=== PATIENT | male | born 1950 | race Caucasian/White ===

== ENCOUNTER 2017-03-03 07:40 | Observation (INO) | payer BC, OTHER ==
[~2017-03-03] VITALS: Ht 177.8 cm; Wt 85.5 kg
[2017-03-03] MEDS: RAMELTEON 8 MG TAB (ROZEREM) PO SCH (00:23)
[2017-03-03] MEDS ORDERED: TRAV04OPD (07:51)
[2017-03-03] MEDS ORDERED: METO1TAB33 PO (07:51)
[2017-03-03] MEDS ORDERED: LOSA100T36 PO (07:51)
[2017-03-03] MEDS ORDERED: ROSU40TA PO (07:51)
--- NOTE | 2017-03-03 08:34 | REP ---
CT of the brain without IV contrast: There are no comparisons. There is no hemorrhage. There is no edema, mass effect or midline shift. The cortical stripe is unremarkable. The ventricles are normal size and midline. The visualized paranasal sinuses and mastoid air cells are unremarkable. Impression: There is no hemorrhage, acute infarct or mass. Negative emergency CT of the brain. Signed by Thomas Mcintosh MD 03/03/2017 08:26 A
--- NOTE | 2017-03-03 09:06 | REP ---
SINGLE VIEW CHEST: Single PA view of the chest is performed. There is convexity along the right heart border in the infrahilar region. This may represent a prominent fat pad or scar but I would recommend a CT of the chest with IV contrast to rule out underlying mass or consolidation. Otherwise, the lungs are clear without infiltrate. The heart appears mildly enlarged. There is mild calcification of the thoracic aorta. There are degenerative changes of the spine. IMPRESSION: Convexity along the right heart border in the right infrahilar region. Recommend CT of the chest with IV contrast to further evaluate. Signed by Thomas Staples MD 03/03/2017 05:37 P
[2017-03-03 09:18] LABS: BASO % 0.4 % (0.0-1.0); EOS % 0.5 % (0.0-3.0); LARGE UNSTAINED CELL # 0.1 K/mm3 (0.0-0.4); LARGE UNSTAINED CELL % 2.2 % (0.0-4.0); LYMPH # 1.2 K/mm3 (1.5-4.5); LYMPH % 20.1 % (24.0-44.0); MEAN CORPUSCULAR HEMOGLOBIN 33.8 pg (27.0-33.0); MEAN CORPUSCULAR HGB CONC 35.6 g/dl (32.0-36.5); MONO # 0.4 K/mm3 (0.0-0.8); MONO % 6.1 % (0.0-5.0); NEUTROPHILS # 4.2 K/mm3 (1.8-7.7); NEUTROPHILS % 70.7 % (36.0-66.0); PLATELET COUNT, AUTOMATED 150 k/mm3 (150-450); RED CELL DISTRIBUTION WIDTH 12.6 % (11.5-14.5); WHITE BLOOD COUNT 5.9 K/mm3 (4.0-10.0)
[2017-03-03 09:24] LABS: ANION GAP 4 MEQ/L (8-16); BLOOD UREA NITROGEN 14 MG/DL (7-18); CALCIUM LEVEL 9.2 MG/DL (8.8-10.2); CARBON DIOXIDE LEVEL 28 MEQ/L (21-32); CHLORIDE LEVEL 106 MEQ/L (98-107); CREATININE FOR GFR 0.79 MG/DL (0.70-1.30); GLOMERULAR FILTRATION RATE > 60.0 (>49); GLUCOSE, FASTING 108 MG/DL (80-110); SODIUM LEVEL 138 MEQ/L (136-145)
[2017-03-03 09:48] LABS: INR 0.96
[2017-03-03] MEDS ORDERED: ACETAMINOPHEN TAB 650MG DOSE (2X325MG) PO PRN (13:30)
[2017-03-03] MEDS ORDERED: BISACODYL 5 MG TAB PO PRN (13:30)
[2017-03-03] MEDS ORDERED: ONDANSETRON 4MG/2ML VIAL (J2405) IV PRN (13:30)
[2017-03-03] MEDS ORDERED: PERCOCET 5MG/325MG TAB PO ONE ×2 (13:45→14:45)
--- NOTE | 2017-03-03 14:27 | HPEPDOC ---
[facility] Medical History & Physical Date of Admission Mar 03, 2017 History and Physical ATTENDING: PCP: Dr Neftali Pham CC: Leg tingling HPI: 66yoM with a past medical history significant for HTN, HLD who reports difficulty forming words, difficulty getting words out, difficulty with concentration and writing, and RLE tingling and pain. He does note lower Rt back pain as well. States symptoms come and go for past 2 days. He has reported that he has noticed some difficulty with speech over the past 1 year but states concentration and ability to get words out is worse in past 2 days. He states he has noticed Rt LBP and Rt leg pain and tingling over the past 2 days. Denies weakness UE/LE. Denies DONOHUE, vision changes, dizziness, dysphagia. Denies any fevers, chills, weakness, fatigue, CP, SOB, cough, palpitations, abdominal pain, N/V/D or changes in bowel or bladder habits. Upon presentation to the hospital the patient was found to have aphasia and back pain, thus the hospitalist team was consulted. PMHx: HTN HLD GERD h/o LBP Psoriasis Glaucoma PSHX: CTR Left. Colonoscopy. 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 ETOH: denies Illicit Drugs: Denies Recent travel: denies Advanced directives: none FAMHX: Mother: "old age" Father: heart disease Siblings: 1 brotehr Alive, unknown Children: none ROS: As noted in HPI, otherwise 11pt ROS of systems reviewed and unremarkable. PE: GEN: 66yoM, appears stated age. Well-nourished, well developed. No acute distress. Alert and oriented x 3. Slow to answer questions at times, but answering appropriately and proving history. HEENT: Normocephalic, atraumatic. Pupils are equal, round, and reactive to light. Extraocular movements are intact. No nystagmus appreciated. Sclera are nonicteric. Conjunctiva without injection. Nose midline. Nasal turbinates without bogginess. EACs both patent BL. TMs both visualized and benitez with good cone of light, no bulging or erythema. No facial asymmetry. Moist mucous membranes. Dentition fair. Pharynx pink and moist, no cobblestoning. Neck supple , trachea midline. No lymphadenopathy or thyromegaly appreciated. CHEST: Regular rate and rhythm, +S1, +S2 LUNGS: Clear to auscultation bilaterally. No wheezes, rales, or rhonchi. Breathing appears symmetric and easy. Patient is speaking in full sentences. No accessory muscle use. ABD: Round, soft, non-tender, non-distended. +Bowel sounds throughout. No rebound or guarding. No costovertebral angle tenderness. EXT: Pulses 2+ bilaterally dorsalis pedis and radial. No lower extremity edema appreciated. SKIN: [place], dry, warm. Capillary refill <2sec. No rashes. NEURO: Alert and oriented x 3. No focal deficits appreciated. DTRs intact. Mild TTP in th Rt lower Lumbar spine area. EKG: SR [address] head. There is no hemorrhage, acute infarct or mass. Negative emergency CT of the brain. CXR Convexity along the right heart border in the right infrahilar region. Recommend CT of the chest with IV contrast to further evaluate. A&P: 66yoM with a past medical history significant for HTN, HLD who reports difficulty forming words, difficulty getting words out, difficulty with concentration and writing, and RLE tingling and pain. He does note lower Rt back pain as well. States symptoms come and go for past 2 days. 1. The patient will be admitted to PCU for at least [address] Campa's service. Pt is discussed with Dr Giles. 2. Expressive aphasia. MRI Brain pending. PCU/TM. TTE pending. Carotid U/S pending. Pt on ASA 81 mg daily. PT/OT/ST pending. UA/UC pending. TSH pending. Neuro checks. Neuro consulted to further evaluate. Dr Pineda aware and will see the Pt. 3. LBP. MRI LS Spine pending. Pain Control. PT/OT. 4. HTN. Cont outpt regimen with hold parameters. Serial CIP/Trop. 5. HLD. Cont statin. 6. Glaucoma. Cont outpt regimen. 7. Abn CXR. CT with contrast recommended. Will need further evaluation and f/u. MED REC IS PENDING AT THIS TIME. DVT prophylaxis. SQ heparin. The patient is a Full Code Vital Signs Vital Signs Date Time Temp Pulse Resp B/P (MAP) Pulse Ox O2 Delivery O2 Flow Rate FiO2 03/03/17 08:52 03/03/17 07:47 97.9 68 18 97 Room Air Laboratory Data Labs 24H Laboratory Tests 2 03/03/17 08:45: Bedside Glucose (Misc Panel) 112 03/03/17 08:48: White Blood Count 5.9, Red Blood Count 4.41, Hemoglobin 14.9, Hematocrit 41.9L, Mean Corpuscular Volume 95.0, Mean Corpuscular Hemoglobin 33.8H, Mean Corpuscular Hemoglobin Concent 35.6, Red Cell Distribution Width 12.6, Platelet Count 150, Neutrophils (%) (Auto) 70.7H, Lymphocytes (%) (Auto) 20.1L, Monocytes (%) (Auto) 6.1H, Eosinophils (%) (Auto) 0.5, Basophils (%) (Auto) 0.4 , Neutrophils # (Auto) 4.2, Lymphocytes # (Auto) 1.2L, Monocytes # (Auto) 0.4, Eosinophils # (Auto) 0.0, Basophils # (Auto) 0.0, Large Unclassified Cells % 2.2 , Large Unclassified Cells # 0.1, Prothrombin Time 12.9, Prothromb Time International Ratio 0.96, Activated Partial Thromboplast Time 24.9L, Anion Gap 4L, Glomerular Filtration Rate > 60.0, Blood Urea Nitrogen 14, Creatinine 0.79, Sodium Level 138, Potassium Level 4.0, Chloride Level 106, Carbon Dioxide Level 28, Calcium Level 9.2, Total Creatine Kinase 35L, Creatine Kinase MB 1.0, Creatine Kinase MB Relative Index 2.85, Troponin I < 0.02 CBC/BMP Laboratory Tests 03/03/17 08:48 Red Blood Count 4.41, Mean Corpuscular Volume 95.0, Mean Corpuscular Hemoglobin 33.8 H, Mean Corpuscular Hemoglobin Concent 35.6, Red Cell Distribution Width 12.6, Neutrophils (%) (Auto) 70.7 H, Lymphocytes (%) (Auto) 20.1 L, Monocytes (% ) (Auto) 6.1 H, Eosinophils (%) (Auto) 0.5, Basophils (%) (Auto) 0.4, Neutrophils # (Auto) 4.2, Lymphocytes # (Auto) 1.2 L, Monocytes # (Auto) 0.4, Eosinophils # (Auto) 0.0, Basophils # (Auto) 0.0, Calcium Level 9.2, Total Creatine Kinase 35 L Home Medications Scheduled Aspirin (Aspirin 81) 81 Mg Tab, 81 MG PO DAILY Losartan Potassium (Losartan Potassium) 100 Mg Tab, 100 MG PO DAILY Metoprolol Succinate (Metoprolol Succinate ER) 100 Mg Tab, 100 MG PO DAILY Rosuvastatin Calcium (Rosuvastatin Calcium) 40 Mg Tab, 40 MG PO DAILY Travoprost (Travatan Z) 50 Drop/2.5 Ml Soln, 1 DROP OU QHS Allergies Coded Allergies: No Known Allergies (Unverified , 03/03/17) Attending Note Attending Note I have independently interviewed and examined this patient at the bedside. He states that he has had a few months history of expressive aphasia where he knew what to say, but had to concentrate and take a few seconds before the right words came out, worsened in the past two days when he was at a closing where they had a discussion, and it took him a few seconds to respond again. 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 He otherwise denied any lower extremity weakness or foot drop. Velia Ferrell Mar 03, 2017 14:27 DAMON GILES MD Mar 04, 2017 12:11
[2017-03-03] MEDS ORDERED: ASPI1TAB PO (14:36)
[2017-03-03] MEDS ORDERED: TRAV04OPD OU (14:36)
[2017-03-03] MEDS ORDERED: PERCOCET 5MG/325MG TAB PO PRN (14:45)
[2017-03-03] MEDS ORDERED: MORPHINE 2 MG/ML 1ML SYRINGE IV PRN (14:45)
[2017-03-03] MEDS ORDERED: MORPHINE 2 MG/ML 1ML SYRINGE IV ONE (14:45)
[2017-03-03 16:00] VITALS: BP 140/101
[2017-03-03] MEDS ORDERED: SLF 3 ML SYR IV PRN (16:15)
[2017-03-03] MEDS: ASPIRIN 81 MG ENTERIC TAB PO SCH (16:22)
[2017-03-03] MEDS: ROSUVASTATIN 10 MG TAB (CRESTOR) PO SCH (16:22)
[2017-03-03] MEDS: METOPROLOL SUCC (TopROL XL) 100MG *XL* TAB PO SCH (16:22)
[2017-03-03] MEDS: LOSARTAN 50 MG TAB PO SCH (16:23)
[2017-03-03 17:09] VITALS: BP 132/84
[2017-03-03] MEDS: PERCOCET 5MG/325MG TAB PO PRN ×3 (17:25→22:40)
--- NOTE | 2017-03-03 20:05 | REP ---
HISTORY: Aphagia. COMPARISON: None. Multiple sonographic images of the carotid arteries show echogenic material along the carotid arterial malin particularly in the proximal internal carotid arteries bilaterally, the carotid bulb and distal common carotid artery. The echogenic material seen casting an acoustic shadow consistent with both soft and calcified plaque formation. Right Left CCA systolic 92.5 cm/s 89.9 cm/s CCA diastolic 20.7 cm/s 17.2 cm/s ICA systolic 115.7 cm/s 95.1 cm/s ICA diastolic 23.1 cm/s 13.5 cm/s ICA/CCA ratio 1.25 1.06 Analysis of the spectral waveforms shows mild to moderate bilateral internal carotid arterial spectral broadening. Antegrade flow is seen in both vertebral arteries. IMPRESSION: According to the NASCET consensus criteria, there is less than 50% stenosis of the internal carotid arteries bilaterally. Signed by Danis Rojas DO 03/07/2017 10:30 A
--- NOTE | 2017-03-03 20:40 | REPUSA ---
MRI of the brain. Clinical history: leg weakness, aphasia. Technique: Multiecho multiplanar MRI images of the brain were obtained without administration of cont rast. Diffusion weighted images with ADC mapping was also obtained. Findings: The ventricles and sulci are symmetric bilaterally. The brain parenchyma demonstrates scattered areas of periventricular and subcortical white matter T2 hyperintensity. There is no midline shift, mass e ffect, or extra-axial fluid collection. The midline intracranial structures do not demonstrate any gr oss abnormalities. The cervical cranial junction is intact. The orbits are unremarkable. The visualiz ed paranasal sinuses and mastoid air cells are clear. The osseous structures and superficial soft tis sues are unremarkable. The vascular structures demonstrate appropriate flow voids. Impression: No evidence of acute hemorrhage or infarct. Scattered T2 signal changes in the periventri cular and subcortical white matter likely represents chronic small vessel ischemic disease in a patie nt of this age. Follow-up is suggested as clinically indicated.
--- NOTE | 2017-03-03 21:10 | REPUSA ---
MRI of the lumbar spine without contrast Clinical statement: right leg numbness. Technique: Multiecho multiplanar MRI images of the lumbar spine were obtained without administration of contrast. No comparison is available. Findings: The lumbar vertebral bodies are in satisfactory position and alignment. No fractures or dis locations are demonstrated. Normal heterogeneous bone marrow signal is noted. No osseous tumors are s een. The intervertebral disc heights are well maintained and demonstrate normal signal. The filum ter minale and conus medullaris appear unremarkable. The spinal cord demonstrates normal signal and conto ur. The surrounding soft tissues are within normal limits. At L3/L4 and L4/L5, there is minimal disc bulging noted. There is no evidence of central canal stenos is. The neural foramen are patent. At L4/L5, there is a right paracentral disc protrusion measuring 0.5 x 1.2 cm. There is also a disc e xtrusion extending at this site 1.1 cm inferiorly along the posterior border of the L5 vertebral body . The disc protrusion causes significant mass effect on the right anterior thecal sac. The disc extru ayesha comes in close proximity to the exiting right S1 nerve root at this level. Additionally, there i s moderate bilateral neural foraminal narrowing. Impression: 1. Moderate sized right paracentral disc protrusion at L4/L5, causing mass effect on the right anteri or thecal sac without evidence of central canal stenosis. A disc extrusion extending inferiorly is al so seen at the site. This disc extrusion comes in close proximity and likely in contact with the exit ing right S1 nerve root at this level. Additionally, there is moderate bilateral neural foraminal cat rowing noted. 2. Minimal disc bulging is also appreciated at L3/L4 and L4/L5, without evidence of central canal dori nosis or neural foraminal narrowing.
[2017-03-03 21:21] VITALS: BP 131/70
[2017-03-03] MEDS: LATANOPROST 0.005% OPHTH SOLN 2.5 ML OU SCH (22:08)
[2017-03-03] MEDS: SLF 3 ML SYR IV SCH (22:09)
[2017-03-03] MEDS: HEPARIN SOD (PORCINE) 5000 UNITS/ML VIAL SC SCH (22:09)
[2017-03-04 00:30] VITALS: BP 113/59
[2017-03-04 05:22] LABS: BASO % 0.4 % (0.0-1.0); LARGE UNSTAINED CELL # 0.1 K/mm3 (0.0-0.4); LARGE UNSTAINED CELL % 2.1 % (0.0-4.0); LYMPH # 1.8 K/mm3 (1.5-4.5); LYMPH % 34.1 % (24.0-44.0); MEAN CORPUSCULAR HEMOGLOBIN 34.4 pg (27.0-33.0); MEAN CORPUSCULAR HGB CONC 35.9 g/dl (32.0-36.5); MEAN CORPUSCULAR VOLUME 95.7 fl (80.0-96.0); MONO # 0.4 K/mm3 (0.0-0.8); MONO % 6.9 % (0.0-5.0); NEUTROPHILS % 55.4 % (36.0-66.0); PLATELET COUNT, AUTOMATED 150 k/mm3 (150-450); RED CELL DISTRIBUTION WIDTH 12.7 % (11.5-14.5); WHITE BLOOD COUNT 5.3 K/mm3 (4.0-10.0)
[2017-03-04] MEDS: HEPARIN SOD (PORCINE) 5000 UNITS/ML VIAL SC SCH ×3 (05:26→20:38)
[2017-03-04] MEDS: SLF 3 ML SYR IV SCH ×3 (05:26→20:38)
[2017-03-04 05:28] VITALS: BP 123/68
[2017-03-04 05:38] LABS: ANION GAP 6 MEQ/L (8-16); BLOOD UREA NITROGEN 16 MG/DL (7-18); CALCIUM LEVEL 8.7 MG/DL (8.8-10.2); CARBON DIOXIDE LEVEL 29 MEQ/L (21-32); CHLORIDE LEVEL 107 MEQ/L (98-107); CREATININE FOR GFR 0.91 MG/DL (0.70-1.30); GLOMERULAR FILTRATION RATE > 60.0 (>49); GLUCOSE, FASTING 99 MG/DL (80-110); POTASSIUM SERUM 4.2 MEQ/L (3.5-5.1); SODIUM LEVEL 142 MEQ/L (136-145)
[2017-03-04 08:25] VITALS: BP 118/63
[2017-03-04] MEDS ORDERED: ISOVUE-370 76% 100ML VIAL (Q9967) As Ordered ONE (08:42)
--- NOTE | 2017-03-04 09:15 | REP ---
CT CHEST WITH IV CONTRAST: HISTORY: Right infrahilar fullness on x-ray dated May 03, 2017. Chest CT recommended. No comparison chest CT study. CT CONTRAST DOSE: 75 mL of intravenous Isovue 370. CT FINDINGS: There is a granulomatous calcification in the right lower lobe adjacent to the posterolateral pleural. In addition, there is a tiny noncalcified nodular density in the anterior segment of the right upper lobe visible on image 49 of 115 in series 201 of today's study. This measures only 3 mm in greatest diameter. No other pulmonary nodule is seen. No pulmonary mass lesion or infiltrate is noted. No hilar or mediastinal mass or adenopathy is seen. There is fairly prominent left coronary artery vascular calcification and some right coronary vascular calcification is observed. No adrenal lesion is seen. Visualized upper abdominal structures are unremarkable. IMPRESSION: 3 mm incidental noncalcified pulmonary nodule in the right upper lobe. Granulomatous calcification in the right lower lobe. No other abnormal pulmonary parenchymal opacity. Follow-up CT study can be performed in 1 year to document stability in size. Signed by Jamil Mensah MD 03/04/2017 03:18 P
[2017-03-04] MEDS: ROSUVASTATIN 10 MG TAB (CRESTOR) PO SCH (09:20)
[2017-03-04] MEDS: METOPROLOL SUCC (TopROL XL) 100MG *XL* TAB PO SCH (09:21)
[2017-03-04] MEDS: PERCOCET 5MG/325MG TAB PO PRN (09:21)
[2017-03-04] MEDS: LOSARTAN 50 MG TAB PO SCH (09:21)
[2017-03-04] MEDS: ASPIRIN 81 MG ENTERIC TAB PO SCH (09:22)
[2017-03-04] MEDS ORDERED: NAPROXEN 250 MG TAB PO PRN (10:15)
[2017-03-04] MEDS: GABAPENTIN 100 MG CAP PO SCH ×2 (11:31→20:37)
--- NOTE | 2017-03-04 11:37 | ECGEPIP ---
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
[2017-03-04 12:00] VITALS: BP 116/56
--- NOTE | 2017-03-04 14:07 | IPNPDOC ---
Text Note Date of Service The patient was seen on 03/04/17. NOTE Subjective: Patient states he feels much better. His radiculopathy has much improved. No focal deficits. Had complained of issues with short-term memory for the past 1 year. No dysarthria/dysphagia/facial droop/ or focal weakness reported. Objective: Vitals: (see below) General: No acute distress, laying comfortably in bed. HEENT: Moist mucous membranes. Neck: No JVD or lymphadenopathy Cardiac: RRR, No murmurs Pulm: Clear to auscultation b/l. No wheezing, rhonchi Abd: NT/ND + BS Ext: No edema or cyanosis Neuro: Strength 5/5 BUE and BLE. CN 2-12 intact. F to N intact Negative Babinki. Sensation to fine touch and pinprick intact. NIH 0 Alert and oriented 3 DTR 2+ bilateral lower extremities Labs (see below) Images: MRI brain 03/03/17Impression: No evidence of acute hemorrhage or infarct. Scattered T2 signal changes in the periventricular and subcortical white matter likely represents chronic small vessel ischemic disease in a patient of this age. Follow-up is suggested as clinically indicated. Carotid ultrasound 03/03/17 IMPRESSION: According to the NASCET consensus criteria, there is less than 50% stenosis of the internal carotid arteries bilaterally. Head CT 03/03/17 Impression: There is no hemorrhage, acute infarct or mass. Negative emergency CT of the brain. Chest x-ray 03/03/17 IMPRESSION: Convexity along the right heart border in the right infrahilar region. Recommend CT of the chest with IV contrast to further evaluate. CT chest with contrast 03/03/17 IMPRESSION: 3 mm incidental noncalcified pulmonary nodule in the right upper lobe. Granulomatous calcification in the right lower lobe. No other abnormal pulmonary parenchymal opacity. Follow-up CT study can be performed in 1 year to document stability in size. MRI lumbar spine 03/03/17Impression: 1. Moderate sized right paracentral disc protrusion at L4/L5, causing mass effect on the right anterior thecal sac without evidence of central canal stenosis. A disc extrusion extending inferiorly is also seen at the site. This disc extrusion comes in close proximity and likely in contact with the exiting right S1 nerve root at this level. Additionally, there is moderate bilateral neural foraminal narrowing noted. 2. Minimal disc bulging is also appreciated at L3/L4 and L4/L5, without evidence of central canal stenosis or neural foraminal narrowing. Assessment/Plan 1. Radiculopathy secondary to disc herniation/protrusion. No central canal stenosis the patient's has full strength and sensation. Patient has had chronic lower back pain for years. Has no difficulty with ambulation at this time. His pain regimen is being optimized with the addition of naproxen as well as gabapentin. Physical therapy has been ordered. He is agreeable to surgical evaluation down the road if this pain worsens, and is not controlled despite medical management. 2. Memory loss- patient states this is been going on for the past year. Likely has memory loss from old age as well as possible early development of dementia. Neurology had been consulted. 3. Abnormal chest x-ray- CT chest was performed with a 3 mm incidental nodule as well as granulomatous calcification with recommendations for repeat in one year. We'll need to follow-up with primary care physician. 4. Hypertension controlled continue home meds 5. Hyperlipidemia continue statin 6. GERD continue home meds 7. History of psoriasis- outpatient follow-up 8. History of glaucoma- stable. Outpatient follow-up DVT prophy: Heparin subcutaneous Plan to discharge the next 24 hours if patient continues to improve. VS,Fishbone, I+O VS, Fishbone, I+O Laboratory Tests 03/04/17 05:08 Red Blood Count 4.28 L, Mean Corpuscular Volume 95.7, Mean Corpuscular Hemoglobin 34.4 H, Mean Corpuscular Hemoglobin Concent 35.9, Red Cell Distribution Width 12.7, Neutrophils (%) (Auto) 55.4, Lymphocytes (%) (Auto) 34.1, Monocytes (%) (Auto) 6.9 H, Eosinophils (%) (Auto) 1.0, Basophils (%) ( Auto) 0.4, Neutrophils # (Auto) 3.0, Lymphocytes # (Auto) 1.8, Monocytes # (Auto ) 0.4, Eosinophils # (Auto) 0.0, Basophils # (Auto) 0.0, Calcium Level 8.7 L, Total Creatine Kinase 25 L Vital Signs Date Time Temp Pulse Resp B/P (MAP) Pulse Ox O2 Delivery O2 Flow Rate FiO2 03/04/17 09:51 18 Room Air 03/04/17 09:21 69 118/63 03/04/17 08:25 98.2 95 I&O- Last 24 Hours up to 6 AM 03/05/17 05:59 Intake Total 360 ml Output Total 0 ml Balance 360 ml OLGA JESUS MD Mar 04, 2017 14:07
[2017-03-04 16:30] VITALS: BP 103/59
[2017-03-04] MEDS: RAMELTEON 8 MG TAB (ROZEREM) PO SCH (20:37)
[2017-03-04] MEDS: LATANOPROST 0.005% OPHTH SOLN 2.5 ML OU SCH (20:38)
[2017-03-04 22:00] VITALS: BP 102/60
[2017-03-05] MEDS: HEPARIN SOD (PORCINE) 5000 UNITS/ML VIAL SC SCH (05:09)
[2017-03-05] MEDS: SLF 3 ML SYR IV SCH (05:09)
[2017-03-05 05:50] LABS: BASO % 0.2 % (0.0-1.0); EOS % 0.8 % (0.0-3.0); LARGE UNSTAINED CELL # 0.2 K/mm3 (0.0-0.4); LARGE UNSTAINED CELL % 3.5 % (0.0-4.0); LYMPH # 1.8 K/mm3 (1.5-4.5); LYMPH % 34.8 % (24.0-44.0); MEAN CORPUSCULAR HEMOGLOBIN 33.4 pg (27.0-33.0); MEAN CORPUSCULAR VOLUME 95.6 fl (80.0-96.0); MONO # 0.3 K/mm3 (0.0-0.8); MONO % 6.1 % (0.0-5.0); NEUTROPHILS # 2.7 K/mm3 (1.8-7.7); NEUTROPHILS % 54.5 % (36.0-66.0); PLATELET COUNT, AUTOMATED 146 k/mm3 (150-450); RED CELL DISTRIBUTION WIDTH 12.7 % (11.5-14.5)
[2017-03-05 06:00] VITALS: BP 112/60
[2017-03-05 06:01] LABS: ANION GAP 4 MEQ/L (8-16); BLOOD UREA NITROGEN 17 MG/DL (7-18); CALCIUM LEVEL 8.5 MG/DL (8.8-10.2); CARBON DIOXIDE LEVEL 30 MEQ/L (21-32); CHLORIDE LEVEL 110 MEQ/L (98-107); CREATININE FOR GFR 0.85 MG/DL (0.70-1.30); GLOMERULAR FILTRATION RATE > 60.0 (>49); GLUCOSE, FASTING 101 MG/DL (80-110); POTASSIUM SERUM 4.2 MEQ/L (3.5-5.1); SODIUM LEVEL 144 MEQ/L (136-145)
--- NOTE | 2017-03-05 09:01 | CR ---
DATE OF CONSULTATION: 03/04/2017 REFERRING PHYSICIAN: Dr. Silvia Rizo REASON FOR CONSULTATION: Difficulty with speech and right leg numbness. HISTORY OF PRESENT ILLNESS. Doris Golden is a 66-year-old man with a history of hypertension, dyslipidemia who was admitted at [facility] due to difficulty finding words. He had difficulty writing and getting words out for last 1 year. He denies any worsening of his symptoms over the last few weeks. He developed right leg pain and numbness, which is 5/10 in intensity, a week ago. He has history of back pain for 20 years. Back pain is 8/10 in intensity and radiates down his right leg. In the past, he was told that he may have sciatica. He denies any neck pain, headaches, seizures, dysphagia, dysarthria, diplopia or urinary incontinence. He denies any weakness of his right leg. He denies any problems of his right arm or left side of body. He denies any problems of his face. DIAGNOSTIC STUDIES: His CT scan of head was unremarkable. MRI scan of brain showed mild small vessel ischemic disease of brain. MRI lumbosacral spine showed disc disease at L3-L4, L4-L5 with compression of right L5-S1 nerves. PAST MEDICAL HISTORY: Hypertension. Dyslipidemia. Acid reflux. History of chronic low back pain. Psoriasis. Glaucoma. Left carpal tunnel surgery. Colonoscopy. SOCIAL HISTORY: He is . 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 He denies alcohol or illicit drugs. He denies smoking. He used to smoke in the past. FAMILY HISTORY: Father had heart disease. One brother is alive. REVIEW OF SYSTEMS: All systems were reviewed and found to be noncontributory except as mentioned in history of present illness. CURRENT MEDICATIONS: - aspirin 81 mg by mouth daily - losartan 100 mg by mouth daily - metoprolol extended release 100 mg by mouth daily - Crestor 40 mg by mouth daily ALLERGIES: None. PHYSICAL EXAMINATION Temperature 97.9, pulse 68, respiratory rate 18, 97% saturation on room air. Heart: Regular rate and rhythm. Lungs: Clear to auscultation. Abdomen: Soft, nontender, nondistended. Neurological Exam: The patient is awake, alert, oriented to place, person and time. Normal speech, comprehension and repetition. Extraocular muscles are intact. No facial weakness. Tongue, uvula are midline. 5/5 strength in all four extremities. Deep tendon flexes are 2+ throughout. He has decreased cold and vibration sensation in his right leg. Gait is normal. There is no dysmetria or ataxia. There is no gross musculoskeletal abnormalities. Ear, nose and throat examination is within normal limits. ASSESSMENT 1. Subjective difficulty with word finding, concentrating and writing 2. No evidence of ischemic stroke. 3. Chronic back pain. 4. Lumbosacral right-sided L5-S1 radiculopathy due to lumbosacral disc disease. 5. We cannot exclude semantic variant of early front frontotemporal dementia, although I do not see any atrophy in left frontotemporal head region on MRI and CT scan of the brain. PLAN: 1. Continue aspirin 81 mg by mouth daily and Crestor 40 mg by mouth daily. 2. EMG nerve conduction study of legs as outpatient. 3. Follow with our office in 3-4 weeks after hospital discharge.
[2017-03-05] MEDS: ROSUVASTATIN 10 MG TAB (CRESTOR) PO SCH (10:15)
[2017-03-05] MEDS: ASPIRIN 81 MG ENTERIC TAB PO SCH (10:16)
[2017-03-05 10:17] VITALS: BP 114/65
[2017-03-05] MEDS: LOSARTAN 50 MG TAB PO SCH (10:17)
[2017-03-05] MEDS: GABAPENTIN 100 MG CAP PO SCH (10:17)
[2017-03-05] MEDS: METOPROLOL SUCC (TopROL XL) 100MG *XL* TAB PO SCH (10:18)
[2017-03-05] MEDS ORDERED: MAPA325T3 PO (11:22)
[2017-03-05] MEDS ORDERED: GABA-279 PO (11:22)
--- NOTE | 2017-03-05 14:38 | DS.PDOC ---
Discharge Summary General Date of Admission Mar 03, 2017 at 13:29 Date of Discharge 03/05/17 Attending Physician: OLGA JESUS MD Specialist/Consultants Involve: SEEMA SAHU MD Discharge Summary PROCEDURES PERFORMED DURING STAY: None. ADMITTING/DISCHARGE DIAGNOSES: 1. Radiculopathy secondary to disc herniation/protrusion. 2. Memory loss 3. Incidental pulmonary nodule which will require a repeat CT of the chest in one year. 4. Hypertension 5. Hyperlipidemia. 6.GERD 7. History of psoriasis 8. History of glaucoma COMPLICATIONS/CHIEF COMPLAINT: Radiculopathy HISTORY OF PRESENT ILLNESS/HOSPITAL COURSE: This is a 66-year-old male past medical history of hypertension, hyperlipidemia presents complaining of right lower extremity radiculopathy. Patient also notes that over the last year he's had short-term memory loss. The patient did have preserved strength as well as sensation in his lower extremities. He did have an MRI of lumbar spine which showed disc protrusion L4/ L5. No central canal stenosis was noted. His pain was well-controlled. He was started on gabapentin for his radiculopathy. He has done well with physical therapy and he has been given a prescription to continue physical therapy outpatient. It was also explained that the pain management fails, and the patient does have worsening pain or new weakness, then neurosurgical intervention should be entertained; he should present to the ED follow-up with his primary care physician. In terms of short-term memory loss, it is questionable whether patient has early stages of dementia. He was evaluated by neurology and will continue to follow up with an outpatient. Continue aspirin and statin. Patient is not hemodynamically stable, has cleared PT, and will be discharged home. DISCHARGE MEDICATIONS: Please see below. ALLERGIES: Please see below. PHYSICAL EXAMINATION ON DISCHARGE: Vitals: (see below) General: No acute distress, laying comfortably in bed. HEENT: Moist mucous membranes. Neck: No JVD or lymphadenopathy Cardiac: RRR, No murmurs Pulm: Clear to auscultation b/l. No wheezing, rhonchi Abd: NT/ND + BS Ext: No edema or cyanosis Neuro: Strength 5/5 BUE and BLE. CN 2-12 intact. F to N intact Negative Babinki. Sensation to fine touch and pinprick intact. NIH 0 Alert and oriented 3 DTR 2+ bilateral lower extremities LABORATORY DATA: Please see below. IMAGING: MRI brain 03/03/17Impression: No evidence of acute hemorrhage or infarct. Scattered T2 signal changes in the periventricular and subcortical white matter likely represents chronic small vessel ischemic disease in a patient of this age. Follow-up is suggested as clinically indicated. Carotid ultrasound 03/03/17 IMPRESSION: According to the NASCET consensus criteria, there is less than 50% stenosis of the internal carotid arteries bilaterally. Head CT 03/03/17 Impression: There is no hemorrhage, acute infarct or mass. Negative emergency CT of the brain. Chest x-ray 03/03/17 IMPRESSION: Convexity along the right heart border in the right infrahilar region. Recommend CT of the chest with IV contrast to further evaluate. CT chest with contrast 03/03/17 IMPRESSION: 3 mm incidental noncalcified pulmonary nodule in the right upper lobe. Granulomatous calcification in the right lower lobe. No other abnormal pulmonary parenchymal opacity. Follow-up CT study can be performed in 1 year to document stability in size. MRI lumbar spine 03/03/17Impression: 1. Moderate sized right paracentral disc protrusion at L4/L5, causing mass effect on the right anterior thecal sac without evidence of central canal stenosis. A disc extrusion extending inferiorly is also seen at the site. This disc extrusion comes in close proximity and likely in contact with the exiting right S1 nerve root at this level. Additionally, there is moderate bilateral neural foraminal narrowing noted. 2. Minimal disc bulging is also appreciated at L3/L4 and L4/L5, without evidence of central canal stenosis or neural foraminal narrowing. PROGNOSIS: Fair ACTIVITY: As tolerated. DIET: Low-sodium DISCHARGE PLAN/DISPOSITION: Home, with outpatient physical therapy. Patient has been given a prescription. DISCHARGE INSTRUCTIONS: 1. Follow-up with PCP in 1-2 weeks. Follow up with neurology in 3-4 weeks. Return to ED if symptoms worsen. DISCHARGE CONDITION: Stable. TIME SPENT ON DISCHARGE: Greater than 30 minutes. Vital Signs/I&Os Vital Signs Date Time Temp Pulse Resp B/P (MAP) Pulse Ox O2 Delivery O2 Flow Rate FiO2 03/05/17 11:15 18 Room Air 03/05/17 10:18 58 03/05/17 10:17 114/65 03/05/17 06:00 98.0 93 I&O- Last 24 Hours up to 6 AM 03/06/17 06:00 Intake Total 570 ml Output Total 550 ml Balance 20 ml Laboratory Data Labs 24H Laboratory Tests 2 03/05/17 05:37: White Blood Count 5.0, Red Blood Count 4.10L, Hemoglobin 13.7L, Hematocrit 39.2L , Mean Corpuscular Volume 95.6, Mean Corpuscular Hemoglobin 33.4H, Mean Corpuscular Hemoglobin Concent 35.0, Red Cell Distribution Width 12.7, Platelet Count 146L, Neutrophils (%) (Auto) 54.5, Lymphocytes (%) (Auto) 34.8, Monocytes (%) (Auto) 6.1H, Eosinophils (%) (Auto) 0.8, Basophils (%) (Auto) 0.2, Neutrophils # (Auto) 2.7, Lymphocytes # (Auto) 1.8, Monocytes # (Auto) 0.3, Eosinophils # (Auto) 0.0, Basophils # (Auto) 0.0, Large Unclassified Cells % 3.5 , Large Unclassified Cells # 0.2, Anion Gap 4L, Glomerular Filtration Rate > 60.0, Blood Urea Nitrogen 17, Creatinine 0.85, Sodium Level 144, Potassium Level 4.2, Chloride Level 110H, Carbon Dioxide Level 30, Calcium Level 8.5L CBC/BMP Laboratory Tests 03/05/17 05:37 Red Blood Count 4.10 L, Mean Corpuscular Volume 95.6, Mean Corpuscular Hemoglobin 33.4 H, Mean Corpuscular Hemoglobin Concent 35.0, Red Cell Distribution Width 12.7, Neutrophils (%) (Auto) 54.5, Lymphocytes (%) (Auto) 34.8, Monocytes (%) (Auto) 6.1 H, Eosinophils (%) (Auto) 0.8, Basophils (%) ( Auto) 0.2, Neutrophils # (Auto) 2.7, Lymphocytes # (Auto) 1.8, Monocytes # (Auto ) 0.3, Eosinophils # (Auto) 0.0, Basophils # (Auto) 0.0, Calcium Level 8.5 L Microbiology Microbiology 03/03/17 Urine Culture - Final, Complete Discharge Medications Scheduled Aspirin (Aspirin 81) 81 Mg Tab, 81 MG PO DAILY, (Reported) Gabapentin (Gabapentin) 100 Mg Cap, 100 MG PO BID Losartan Potassium (Losartan Potassium) 100 Mg Tab, 100 MG PO DAILY, (Reported) Metoprolol Succinate (Metoprolol Succinate ER) 100 Mg Tab, 100 MG PO DAILY, ( Reported) Rosuvastatin Calcium (Rosuvastatin Calcium) 40 Mg Tab, 40 MG PO DAILY, (Reported ) Travoprost (Travatan Z) 50 Drop/2.5 Ml Soln, 1 DROP OU QHS, (Reported) Scheduled PRN Acetaminophen (Mapap) 325 Mg Tab, 650 MG PO Q4HP PRN for MILD PAIN OR FEVER Allergies Coded Allergies: No Known Allergies (Unverified , 03/03/17) OLGA JESUS MD Mar 05, 2017 14:38
--- NOTE | 2017-03-06 13:52 | ECHO ---
DATE OF PROCEDURE: 03/05/2017 AGE: 66 GENDER: Male HEIGHT: 70 inches WEIGHT: 180 pounds BODY SURFACE AREA: 2.04 m2 PATIENT LOCATION: Inpatient, [place], room 4233 REFERRING PHYSICIAN: Silvia Rizo MD INDICATION: Transient ischemic attack (TIA). Question of cardiac source of embolic material. 2D MEASUREMENTS: RV: 4.2 cm LV: 5.1 cm Septum: 1.0 cm Posterior wall: 0.9 cm Aortic root: 3.4 cm LA: 4.1 cm LVEF: 65% DOPPLER MEASUREMENTS: AV: 1.9 m/s LVOT: 0.93 m/s LVOT diameter: 1.9 cm MV-E: 61, A: 81, EA ratio: 0.8 Early mitral deceleration time: 229 ms E prime: 6.4, A prime 9.5, E/E prime ratio: 9.5 Estimated pulmonary artery wedge pressure: 10.5 mmHg. PV" 0.7 m/s Pulmonary artery acceleration time: 130 ms RVSP: 30 mmHg (using an estimated central venous pressure; we could not clearly visualize his inferior vena cava). COMMENTS: Normal sinus rhythm without intraventricular conduction disturbance. Borderline dilated left atrium, but left ventricular size was normal. Right heart chamber sizes were upper limits of normal. Normal left ventricle (LV) wall thickness. On real-time imaging from the parasternal and apical projections wall motion was symmetrical and normal to hyperkinetic. Slightly thickened mitral annulus, but normal leaflet thickness and excursion with no posterior systolic buckling. Three equal size aortic cusps with mildly thickened cusp edges, but adequate cusp separation. Normal aortic root size. No apparent intracardiac mass or pericardial effusion. Color flow Doppler study taken from the parasternal and apical projections showed trace mitral and very mild tricuspid, but no aortic insufficiency. Guided continuous wave Doppler of his aortic valve showed a normal peak systolic velocity against LV outflow tract obstruction. Pulsed and continuous wave Doppler of his LV inflow tract taken from the apical four-chamber projection showed normal diastolic filling velocities against mitral stenosis. However, there was more prominent late diastolic/atrial dependent filling pattern. A degree of diastolic dysfunction was further confirmed by a prolonged early mitral deceleration time and tissue Doppler of his mitral annulus. However, current estimated mean left atrial pressure was normal. Pulsed and continuous wave Doppler of his pulmonary trunk showed a normal peak systolic velocity against right ventricle (RV) outflow tract obstruction. His pulmonary artery acceleration time was normal against an elevated pulmonary vascular resistance. Guided continuous wave Doppler of his tricuspid valve allowed our estimation of his right ventricular systolic pressure (upper limits of normal to borderline increased). His inferior vena cava was not clearly visualized to further estimate central venous pressure. CONCLUSIONS: Could not clearly visualize an intracardiac source of embolic material. However, mild aortic valvular sclerosis. Could not rule out a small sessile vegetation. No functional aortic valvular abnormality. Mild mitral annular thickening without functional valvular abnormality. Normal left ventricular size, wall thickness and wall motion. Borderline dilated left atrium with Doppler evidence of impairment of LV diastolic function but currently normal estimated mean left atrial pressure. Right heart chamber sizes upper limits of normal with normal contraction. Current estimated pulmonary arterial pressure was upper limits of normal. If a cardiac source of embolic material is seriously suspect, we would recommend complete blood count, sedimentation rate and two sets of blood cultures as well as a transesophageal echocardiogram.
== END 2017-03-05 13:49 | disposition home or self-care (01) ==
LOC: M ED 07:40 → M ED INP 13:29 → M PCU 15:53 → M MSPAV 03-04 16:25
PROVIDERS: ADMIT General Practice; ATTEND Internal Medicine
DX: M54.16 Radiculopathy, lumbar region (principal); M51.26 Other intervertebral disc displacement, lumbar region; R91.1 Solitary pulmonary nodule; R41.3 Other amnesia; I10 Essential (primary) hypertension; E78.4 Other hyperlipidemia; K21.9 Gastro-esophageal reflux disease without esophagitis; Z87.891 Personal history of nicotine dependence; Z79.82 Long term (current) use of aspirin; Z79.899 Other long term (current) drug therapy; L40.8 Other psoriasis
CPT/HCPCS: 36415; 70450; 70551; 71010; 71260; 72148; 80048; 81001; 82550; 82553; 84443; 85025; 85610; 85730; 87086; 92523; 92610; 93005; 93041; 93306; 93880; 94760; 96372; 96374; 96375; 97161; 99285; J2405; Q9967

== ENCOUNTER → 2018-04-03 | Outpatient (CLI) | payer BC, MEDICARE, OTHER | LOC: M RAD 12:51 | DX: F03.90 Unspecified dementia, unspecified severity, without behavioral disturbance, psychotic disturbance, mood disturbance, and anxiety (principal); Z12.2 Encounter for screening for malignant neoplasm of respiratory organs; Z87.891 Personal history of nicotine dependence; I67.82 Cerebral ischemia; R91.1 Solitary pulmonary nodule; J84.10 Pulmonary fibrosis, unspecified | CPT/HCPCS: 70551 ==